=== PATIENT | male | born 1955 | race Asian ===

== ENCOUNTER 2018-12-19 06:00 | Day surgery (SDC) | payer OTHER ==
[2018-12-19] MEDS ORDERED: ULTRACET PO (07:58)
== END 2018-12-19 10:50 | disposition home or self-care (01) ==
LOC: CIR.AMB 06:00
DX: C20 Malignant neoplasm of rectum (principal)

== ENCOUNTER 2019-12-14 06:00 | Day surgery (SDC) | payer OTHER ==
[~2019-12-14 06:00] MED LIST: ULTRACET PO
== END 2019-12-14 09:45 | disposition home or self-care (01) ==
LOC: AMB-ENDOS 06:00
PROVIDERS: ATTEND Surgery
DX: K62.89 Other specified diseases of anus and rectum (principal); Z20.828 Contact with and (suspected) exposure to other viral communicable diseases